=== PATIENT | male | born 1945 | race Caucasian/White ===

== ENCOUNTER 2025-05-23 17:25 | Emergency (ER) | payer MEDICARE, SELFPAY ==
--- OUTSIDE RECORDS SUMMARY | 2025-05-09 14:00 | XMS_ITS | Encounter Summary ---
Author Organization [facility] Address [address] [facility] [place] [address] Care Team Providers Care Biomedical Scientist Name Role Phone Mere Merchant MD Primary Care Provider [phone] Tasia José NP Unavailable Reason for Visit * ReasonCommentsSkin TagOn testicles. Encounter Details DateTypeDepartmentCare Team (Latest Contact Info)Qbzyfdymvho16/29/2025 3:[address] [facility] [address] [place] [address] Mere Merchant MD [address] [place] [address] Epithelial inclusion cyst (Primary Dx); Type 2 diabetes mellitus without complication, without long-term current use of insulin (HCC); Hypertension, unspecified type Social History Tobacco UseTypesPacks/DayYears UsedDateSmoking Tobacco: DumkmuPpjbhoices338Celp: 1966Smokeless Tobacco: NeverAlcohol UseStandard Drinks/WeekCommentsNot Currently 0 (1 standard drink = 0.6 oz pure alcohol)caffeine: 2-3 cups of [id number] Health LiteracyAnswerDate RecordedHow often do you need to have someone help you when you read instructions, pamphlets, or other written material from your doctor or pharmacy?Never02/05/2025Humiliation, Afraid, Rape, and Kick questionnaireAnswerDate RecordedWithin the last year, have you been afraid of your partner or ex-partner?No02/05/2025Within the last year, have you been humiliated or emotionally abused in other ways by your partner or ex-partner?No 02/05/2025Within the last year, have you been kicked, hit, slapped, or otherwise physically hurt by your partner or ex-partner?No02/05/2025Within the last year, have you been raped or forced to have any kind of sexual activity by your part ner or ex-partner?No02/05/2025Social Connection and Isolation PanelAnswerDate RecordedIn a typical week, how many times do you talk on the phone with family, friends, or neighbors?Patient vxkxtetf59/28/2025How often do you get together with friends or relatives?Three times a week02/05/2025How often do you attend nondenominational or religion services?1 to 4 times per year02/05/2025Do you belong to any clubs or organizations such as nondenominational groups, unions, fraRealTargeting or athletic kena ups, or school groups?Yes02/05/2025How often do you attend meetings of the clubs or organizations you belong to?1 to 4 times per year02/05/2025re you , , , , never , or living with a partner? 02/05/2025UDIT-CAnswerDate RecordedQ1: How often do you have a drink containing alcohol?Never02/05/2025Q2: How many drinks containing alcohol do you have on a typical day when you are drinking?Patient does not drink02/05/2025Q3: How often do you have six or more drinks on one occasion?Never02/05/2025Overall Financial Resource Strain (CARDIA)AnswerDate RecordedHow hard is it for you to pay for the very basics like food, housing, medical care, and heating?Not hard at all 02/05/2025PHQ-2AnswerDate RecordedPatient Health Questionnaire-2 Score1 02/12/2025[facility] - Occupational Stress QuestionnaireAnswerDate RecordedDo you feel stress - tense, restless, nervous, or anxious, or unable to sleep at night because yourmind is troubled all the time - these days?Very much02/05/2025Exercise Vital SignAnswerDate RecordedOn average, how many days per week do you engage in moderate to strenuous exercise (like a brisk walk)?1 day02/05/2025On average, how many minutes do you engage in exercise at this level?10 min02/05/2025Hunger Vital SignAnswerDate Recorded Within the past 12 months, you worried that your food would run out before you got the money to buymore.Never true02/05/2025Within the past 12 months, the food you bought just didn't last and you didn't have money to get more.Never true 02/05/2025PRAPARE - TransportationAnswerDate RecordedIn the past 12 months, has lack of transportation kept you from medical appointments or from getting medications?No02/05/2025In the past 12 months, has lack of transportation kept you from meetings, work, or from getting things needed for daily living?No 02/05/2025Housing Stability Vital SignAnswerDate RecordedIn the last 12 months, was there a time when you were not able to pay the mortgage or rent on time?No 02/05/2025In the past 12 months, how many times have you moved where you were living?t any time in the past 12 months, were you homeless or living in a detention (including now)?No02/05/2025Sex and Gender InformationValueDate RecordedSex Assigned at BirthNot on fileLegal MbiMezu3412/18/2024 3:38 PM EDT Gender IdentityNot on fileSexual OrientationNot on filedocumented as of this encounter Last Filed Vital Signs Vital SignReadingTime TakenCommentsBlood Nzkqfirz850/8410 2:43 PM EDT Ntdks967605/09/2025 2:43 PM EDTTemperature--Respiratory Upmf2569 2:43 PM EDTOxygen Wvhlvrrppu84%05/09/2025 2:43 PM EDTInhaled Oxygen Concentration-- Gcaqqu53.8 kg (209 lb)05/09/2025 2:43 PM JSONitfuv652.2 cm (5' 7 )05/09/2025 2:43 PM EDTBody Mass Index32.7305/09/2025 2:43 PM EDTdocumented in this encounter Progress Notes * Mere Merchant MD - 05/09/2025 3:00 PM EDT Images from the original note were not included. Subjective ?Quick Links Last Note in Specialty Snapshot Edit RFV/CC Edit Screenings Current Meds Patient ID: Kael Hurst is a 80 y.o. male who presents for Skin Tag (On testicles.). HPI History of Present Illness X months , increaed discomfort x several days ?Quick Review Review Full History Edit History Meds - Current Medications[1] --- PMH - Allergic Depression Diabetes mellitus (HCC) Disease of thyroid gland GERD (gastroesophageal reflux disease) High cholesterol Varicella Objective ?Quick Links Add Vitals Timeline (Adult) Labs Imaging Results Review Trend Vitals ?? Avoid pulling in long tables of results. Comment on relevant results to support your medical decision making. BP 148/84 (BP Location: Left arm, Patient Position: Sitting, BP Cuff Size: Large adult) Pulse 76 Resp 18 Ht 5' 7 Wt 209 lb SpO2 98% BMI 32.73 kg/m?? Physical Exam Physical Exam Multiple inclusion cyst on testicles one larger one posteriorly, which when squeezed releases whitedischarge no erythema ?Quick Links Full Problem List Assessment & Plan Epithelial inclusion cyst Advised warm bath or compresses. No additional are is indicated Type 2 diabetes mellitus without complication, without long-term current use of insulin (HCC) Hypertension, unspecified type Orders: lisinopril 20 MG tablet; Take 1 tablet (20 mg) by mouth Daily Assessment & Plan [1] Apoaequorin (Prevagen) 10 MG capsule atorvastatin (Lipitor) 20 MG tablet cholecalciferol (D3) 25 MCG (1000 UT) capsule glipiZIDE XL (Glucotrol XL) 2.5 MG 24 hr tablet levothyroxine (Synthroid, Levoxyl) 137 MCG tablet metFORMIN XR (Glucophage-XR) 500 MG 24 hr tablet pantoprazole (ProtoNix) 40 MG EC tablet tadalafil (Cialis) 10 MG tablet documented in this encounter Plan of Treatment DateTypeDepartmentCare Team (Latest Contact Info)Uwwylicdeuf62/03/2025 11:30 AM ESTOffice Visit [facility] [address] [facility] [phone] Tasia José NP [address] [facility] [place] [address] 06/14/2025 1:[address] [address] [place] [phone] Smiley Bueno, DPM [address] [place] [address] documented as of this encounter Visit Diagnoses Diagnosis Epithelial inclusion cyst- Primary Sebaceous cyst Type 2 diabetes mellitus without complication, without long-term current use of insulin (HCC) Hypertension, unspecified type documented in this encounter Additional Health Concerns AssessmentNoted TimePHQ-9 Depression Total Score: 8002/12/2025 10:00 AM EDT documented as of this encounter Care Teams Team MemberRelationshipSpecialtyStart DateEnd Date Mere Merchant MD [address] [facility] [place] [address] PCP - GeneralFamily Medicine12/18/24 Tasia José NP [address] [place], [place] [id number] Nurse PractitionerFamily Medicine12/18/24documented as of this encounter
[2025-05-23] VITALS (26 sets, daily range): BP systolic 148–180; BP diastolic 76–120; PULSE 52–84; TEMP 36.6; O2SAT 94–97; BMI 31.3
--- NOTE | 2025-05-23 17:36 | ECG_ITS ---
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 Measurements Intervals [place] Rate: 59 P: -35 NH: 195 QRS: -54 QRSD: 184 T: 126 QT: 464 QTc: 463 Interpretive Statements SINUS RHYTHM SECOND DEGREE AV BLOCK MOBITZ I AV BLOCK (WENCKEBACH) 2550 Left bundle branch block 6230 Left atrial enlargement 9150 abnormal ECG No previous ECG available for comparison Electronically Signed On 05-24-2025 18:30:06 EST by VICKY SANCHEZ M.D.
--- NOTE | 2025-05-23 17:37 | CT_ITS ---
The [address] [address] Patient Name: TAMAR GODOY MRN: [id number] date: 1945 Sex: M Assigned Patient Location: ED.MAIN Current Patient Location: ED.MAIN Accession/Order Number: [id number] Exam Date: 05/23/2025 17:50 Report Date: 05/23/2025 18:52 At the request of: MINGO HERMAN Procedure: CT cervical spine wo con CT CERVICAL SPINE WITHOUT CONTRAST WITH 3D RECONSTRUCTIONS: CLINICAL HISTORY: FALL WITH HEAD INJURY COMPARISON: None TECHNIQUE: Spiral axial unenhanced images were obtained through the cervical spine. Sagittal, coronal and 3D volume-rendered reconstructions were also reviewed. This CT exam was performed using one or more following dose reduction techniques: Automated exposure control, adjustment of the mA and/or kV according to patient size, or use of iterative reconstruction technique. FINDINGS: No fracture malalignment. Mild to moderate disc space narrowing and endplate osteophytosis multiple levels. Nycb-wi-iywwbknv multilevel facet arthropathy. Suspect mild canal narrowing C4-C5. Uncovertebral spurring and foraminal encroachment notably C4-C5 and C6-C7. Prevertebral soft tissues are unremarkable. CT/CT cervical spine wo con IMPRESSION: NO CERVICAL SPINE FRACTURE Impression dictated by: Luís Camacho M.D. 05/23/2025 6:52 PM Dictation Location: [place] [address] Electronically authenticated by: [id number] Y Date: 05/23/2025 18:52
--- NOTE | 2025-05-23 17:37 | CT_ITS ---
The [address] [address] Patient Name: TAMAR GODOY MRN: [id number] date: 1945 Sex: M Assigned Patient Location: ED.MAIN Current Patient Location: ED.MAIN Accession/Order Number: [id number] Exam Date: 05/23/2025 17:50 Report Date: 05/23/2025 18:50 At the request of: MINGO HERMAN Procedure: CT head/brain wo con CT BRAIN WITHOUT CONTRAST: CLINICAL HISTORY: FALL WITH HEAD INJURY COMPARISON: None TECHNIQUE: Contiguous axial unenhanced images were obtained through the brain. This CT exam was performed using one or more following dose reduction techniques: Automated exposure control, adjustment of the mA and/or kV according to patient size, or use of iterative reconstruction technique. FINDINGS: There is no evidence of midline shift, intra or extra-axial fluid collection, hemorrhage or CT evidence of acute large vascular distribution stroke. Central involutional changes and chronic small vessel ischemic disease. There are vascular calcifications. Cataract surgery Mild sinus disease. The surrounding soft tissues are normal. CT/CT head/brain wo con IMPRESSION: NO ACUTE INTRACRANIAL ABNORMALITY. CHRONIC MICROVASCULAR DISEASE. Impression dictated by: Luís Camacho M.D. 05/23/2025 6:50 PM Dictation Location: [place] [address] Electronically authenticated by: [id number] Y Date: 05/23/2025 18:50
--- NOTE | 2025-05-23 17:47 | XR_ITS ---
The [address] [address] Patient Name: TAMAR GODOY MRN: [id number] date: 1945 Sex: M Assigned Patient Location: ER Current Patient Location: ED.MAIN Accession/Order Number: [id number] Exam Date: 05/23/2025 17:50 Report Date: 05/23/2025 18:48 At the request of: MINGO HERMAN Procedure: XR chest 1V PA CHEST: CLINICAL HISTORY: FALL COMPARISON: None Mildly prominent cardiomediastinal silhouette. Lungs clear. No effusion or pneumothorax. XR/XR chest 1V IMPRESSION: Negative acute pleural-parenchymal disease. Impression dictated by: Luís Camacho M.D. 05/23/2025 6:48 PM Dictation Location: [place] [address] Electronically authenticated by: [id number] Y Date: 05/23/2025 18:48
[2025-05-23 17:52] LABS: Hematocrit 41.3 % (42.0-54.0); Hemoglobin 14.1 g/dL (14.0-18.0); Immature Granulocytes Abs Auto 0.02 10^3/uL (0.00-0.03); Immature Granulocytes Pct Auto 0.2 % (0.0-0.5); Lymphocytes Absolute Auto 1.6 10^3/uL (1.2-3.8); Mean Corpuscular HGB Conc 34.1 g/dL (29.9-35.2); Mean Corpuscular Hemoglobin 28.5 pg (25.9-34.0); Mean Corpuscular Volume 83.6 fL (80.0-94.0); Platelet Count 278 10^3/uL (150-450); Red Blood Count 4.94 10^6/uL (4.70-6.10); White Blood Count 9.3 10^3/uL (4.0-11.0)
--- NOTE | 2025-05-23 17:54 | ED_ITS ---
HPI HPI - General Adult General Chief complaint: Fall Stated complaint: FALL Time Seen by Provider: 05/23/25 17:29 Source: patient Mode of arrival: walk-in Limitations: no limitations History of Present Illness HPI narrative: Patient presents with fall states he has been feeling woozy today states he bent over to tie his shoes fell backwards hitting the top of his head on a dresser drawer and. Patient has headache he denies any additional injuries patient remains amatory to emergency room patient denies blurred vision, neck pain, epistaxis, back pain, chest pain, abdominal pain. Moving all extremities without difficulty. Patient denies any blood thinner use including aspirin, Eliquis, Xarelto, Coumadin. Patient denies any urinary bleeding rectal bleeding. Patient denies loss of consciousness. Symptoms moderate severity nothing improves symptoms bending over worsened his symptoms Onset (ago): hour(s) Location: Reports head Radiation: Denies non-radiation, back, neck, abdomen or flank Severity: moderate Relieving factors: Reports none Associated symptoms: Denies confusion, chest pain or nausea/vomiting Related Data Home Medications ?Medication ?Instructions ?Recorded ?Confirmed Unobtainable 05/23/25 05/23/25 Allergies Allergy/AdvReac Type Severity Reaction Status Date / Time erythromycin base (From Allergy Mild Rash Verified 05/23/25 17:40 E-Mycin) Iodinated Contrast Media Allergy Mild Rash Verified 05/23/25 17:40 Penicillins Allergy Mild Rash Verified 05/23/25 17:40 Sulfa (Sulfonamide Allergy Mild Rash Verified 05/23/25 17:40 Antibiotics) tetracycline Allergy Mild Rash Verified 05/23/25 17:40 Review of Systems ROS Status of ROS 10 or more systems reviewed and unremark able except as noted in history and below Constitutional Denies: fever or chills Eyes Denies: change in vision or blurry vision Ears, nose, mouth, and throat Denies: neck pain Cardiovascular Reports: lightheadedness; Denies: chest pain, palpitations or edema Respiratory Denies: shortness of breath or cough Gastrointestinal Denies: abdominal pain, nausea, vomiting or blood in stool Genitourinary Denies: painful urination or blood in urine Musculoskeletal Denies: back pain, neck pain or extremity pain Neurological Reports: headache and dizziness Psychiatric Denies: anxiety Hematologic/Lymphatic Denies: easy bruising Allergic/Immunologic Denies: hives PFSH PFSH Social History Little interest or pleasure in doing things: not at all Feeling down, depressed, or hopeless: not at all Exam Constitutional Vital Signs, click to edit/add: Last Vital Signs Temp 97.9 F 05/23/25 17:29 Pulse 79 05/23/25 20:40 Resp 26 H 05/23/25 20:40 BP 178/76 H 05/23/25 20:30 Pulse Ox 95 05/23/25 20:40 O2 Del Method Room Air 05/23/25 17:49 Documenting provider has reviewed patient's vital signs: yes Common normals: no apparent distress and oriented x3 Exam limitations: no altered mental status General appearance: cooperative, comfortable and well kempt; not in distress Orientation/consciousness: Yes awake; not confused HENKS Common normals: external ears normal, EACs normal and TMs normal bilaterally; negative for normocephalic and head/scalp not atraumatic Head and scalp: abrasion (Scalp abrasion right parietal) Face and sinus: normal facial exam Nose: external nose normal; septum not abnormal and no nasal discharge General ear: hearing not grossly impaired External ear: external ears normal External auditory canal: EACs normal Mouth: oral and palatal mucosa normal, lip normal and tongue normal Eye Common normals: PERRL and EOMs intact bilaterally General eye: normal appearance of both eyes and normal light reflex Visual acuity: acuity normal Alignment: alignment normal Periorbital: periorbital findings normal Conjunctiva: conjunctiva(e) normal Pupil: PERRL and accommodation reflex normal EOM: EOM normal Neck & C-Spine Common normals: full ROM and supple General: normal visual inspection; no tenderness Cervical spine: cervical ROM normal Chest Common normals: inspection of chest normal Chest: no crepitus and no tenderness Cardio Common normals: S1 normal heart sound and S2 normal heart sound; irregular rate, irregular rhythm and peripheral pulses not 2+ throughout (+1 peripheral pulses throughout.) Rate: other (Episodes of bradycardia) Rhythm: abnormal rhythm GI Common normals: Normal to inspection, nondistended, normoactive bowel sounds present, soft to palpation and non-tender Auscultation: normoactive bowel sounds Palpation: soft; non-tender Common normals: no CVA tenderness Back & Pelvis Common normals: no CVA tenderness, thoracic and lumbar spine normal to inspection, no thoracic nor lumbar tenderness and thoraco-lumbar ROM normal General back: no CVA tenderness Thoracic spine/upper back: normal to inspection Extremity Common normals: normal to inspection and full ROM General: normal exam except as noted; no deformity Neuro Common normals: oriented x3, CN's II-XII intact bilaterally and gait normal Sensorium/orientation: awake, alert, oriented to person, oriented to place and oriented to time Psych Common normals: mental status grossly normal, thought process normal, cooperative, affect normal and speech normal Course Vital Signs Vital signs: Vital Signs Temperature 97.9 F 05/23/25 17:29 Pulse Rate 84 05/23/25 17:29 Respiratory Rate 18 05/23/25 17:29 Blood Pressure 180/80 H 05/23/25 17:29 Pulse Oximetry 96 05/23/25 17:29 Oxygen Delivery Method Room Air 05/23/25 17:29 Temperature 97.9 F 05/23/25 17:29 Pulse Rate 79 05/23/25 20:40 Respiratory Rate 26 H 05/23/25 20:40 Blood Pressure 178/76 H 05/23/25 20:30 Pulse Oximetry 95 05/23/25 20:40 Oxygen Delivery Method Room Air 05/23/25 17:49 Medical Decision Making MDM Narrative Medical decision making narrative: Patient presents for fall with head injury. Denies any discharge including chest pain back pain abdominal pain. Will add CT head neck along with CBC CMP EKG troponin magnesium chest x-ray. On exam patient noted to have irregular bigeminal rhythm with bradycardia. Patient denies any history of cardiac disease including atrial fibrillation or surgery. Patient denies any blood thinner use. Discussed with cardiology Dr. David. We discussed patient's presentation and EKG. We discussed we like to transfer patient to [facility] he states we can contact the hospitalist. No further orders. Discussed with hospitalist he will accept patient. 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 Discussed plan of care with patient and family and they are agreeable to plan of care. Differential Diagnosis Differential Diagnosis: Symptomatic bradycardia, head injury, arrhythmia. Lab Data Lab results reviewed: Yes I reviewed the patient's lab results Labs: Lab Results 05/23/25 Range/Units 17:40 WBC 9.3 (4.0-11.0) 10^3/uL RBC 4.94 (4.70-6.10) 10^6/uL Hgb 14.1 (14.0-18.0) g/dL Hct 41.3 L (42.0-54.0) % MCV 83.6 (80.0-94.0) fL MCH 28.5 (25.9-34.0) pg MCHC 34.1 (29.9-35.2) g/dL RDW 14.6 (11.0-15.0) % Plt Count 278 (150-450) 10^3/uL MPV 10.9 (9.5-13.5) fL Neut % (Auto) 64.6 (43.0-75.0) % Lymph % (Auto) 17.5 L (20.5-60.0) % [place] % (Auto) 9.6 (1.7-12.0) % Eos % (Auto) 7.5 H (0.9-7.0) % Baso % (Auto) 0.6 (0.2-2.0) % Neut # (Auto) 6.0 (1.4-6.5) 10^3/uL Lymph # (Auto) 1.6 (1.2-3.8) 10^3/uL [place] # (Auto) 0.9 H (0.3-0.8) 10^3/uL Eos # (Auto) 0.7 (0.0-0.7) 10^3/uL Baso # (Auto) 0.1 (0.0-0.1) 10^3/uL Abs Immat Gran (auto) 0.02 (0.00-0.03) 10^3/uL Imm/Tot Granulo (auto) 0.2 (0.0-0.5) % Sodium 142 (136-145) mmol/L Potassium 4.2 (3.5-5.1) mmol/L Chloride 110 H (98-107) mmol/L Carbon Dioxide 24.2 (21.0-32.0) mmol/L Anion Gap 12.0 BUN 20.0 H (7.0-18.0) mg/dL Creatinine 1.48 H (0.70-1.30) mg/dL Est GFR ( Amer) 56 L (>=60 mL/min/1.73m^2) Est GFR (Non-Af Amer) 46 L (>=60 mL/min/1.73m^2) BUN/Creatinine Ratio 13.5 Glucose 147 H (74-106) mg/dL Calcium 10.2 H (8.5-10.1) mg/dL Magnesium 1.5 L (1.8-2.4) mg/dL Total Bilirubin 0.4 (0.2-1.0) mg/dL AST 15 (15-37) U/L ALT 27 (16-63) U/L Alkaline Phosphatase 87 (46-116) U/L Troponin I High Sens 66.2 (4.0-76.1) pg/mL NT-Pro-B Natriuret Pep 1092.0 (<=1800.0) pg/mL Total Protein 6.9 (6.4-8.2) g/dL Albumin 3.9 (3.4-5.0) g/dL Globulin 3.0 g/dL Albumin/Globulin Ratio 1.3 TSH 1.298 (0.358-3.740) uIU/mL ECG Data Attestation: I personally reviewed and interpreted this ECG as follows: Interpretation: [id number], bradycardia atrial rhythm bigeminal pattern CT interval 292 ms QRS 184 ms QTc 463 ms. Discharge Plan Discharge Chief Complaint: Fall Clinical Impression: Symptomatic bradycardia, Abrasion, Near syncope Closed head injury Qualifiers: Encounter type: initial encounter Qualified Code(s): S09.90XA - Unspecified injury of head, initial encounter Patient Disposition: [facility] Time of Disposition Decision: 20:38 Mode of Transportation: EMS
[2025-05-23 18:09] LABS: Alanine Aminotransferase 27 U/L (16-63); Albumin Globulin Ratio 1.3; Albumin Level 3.9 g/dL (3.4-5.0); Alkaline Phosphatase 87 U/L (46-116); Anion Gap 12.0; Aspartate Amino Transferase 15 U/L (15-37); Blood Urea Nitrogen 20.0 mg/dL (7.0-18.0); Calcium 10.2 mg/dL (8.5-10.1); Carbon Dioxide 24.2 mmol/L (21.0-32.0); Chloride 110 mmol/L (98-107); Estimated GFR (African America 56 (>=60 mL/min/1.73m^2); Estimated GFR (Non-African Ame 46 (>=60 mL/min/1.73m^2); Globulin 3.0 g/dL; Glucose 147 mg/dL (74-106); Potassium 4.2 mmol/L (3.5-5.1); Sodium 142 mmol/L (136-145); Total Protein 6.9 g/dL (6.4-8.2)
[2025-05-23 18:17] LABS: Magnesium 1.5 mg/dL (1.8-2.4)
[2025-05-23 18:18] LABS: NT Pro B Type Natriuretic Pept 1092.0 pg/mL (<=1800.0); Thyroid Stimulating Hormone 1.298 uIU/mL (0.358-3.740)
--- OUTSIDE RECORDS SUMMARY | 2025-05-23 18:19 | XMS_ITS | Clinical Summary ---
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 Name Role Phone Mere Merchant MD Primary Care Provider [phone] Tasia José NP Unavailable [phone] Allergies Active AllergyReactionsCriticalityNoted DateCommentsAmoxicillinItching,RashLow 01/15/2025Sulfa AntibioticsItching,AujoDup4101/15/2025 Medications MedicationSigDispense QuantityRefillsLast FilledStart DateEnd DateStatus Apoaequorin (Prevagen) 10 MG capsule Take by mouthActive cholecalciferol (D3) 25 MCG (1000 UT) capsule Take by mouthActive metFORMIN XR (Glucophage-XR) 500 MG 24 hr tablet Indications:Type 2 diabetes mellitus without complication, without long-term current use of insulin (HCC)Take 2 tablets (1,000 mg) by mouth in the morning and 2 tablets (1,000 mg) before bedtime. Do not crush, chew, or split. 360 tablet 6Active atorvastatin (Lipitor) 20 MG tablet Indications:Hyperlipidemia, unspecified hyperlipidemia typeTake 1 tablet (20 mg) by mouth Daily 90 tablet 5Active tadalafil (Cialis) 10 MG tablet Indications:ImpotenceTake 1 tablet (10 mg) by mouth Daily as needed for erectile dysfunction 8 tablet 509/6Active glipiZIDE XL (Glucotrol XL) 2.5 MG 24 hr tablet Indications:Type 2 diabetes mellitus without complication, without long-term current use of insulin (HCC)Take 1 tablet (2.5 mg) by mouth Daily Do not crush, chew, or split. 90 tablet 309/900543/ctive levothyroxine (Synthroid, Levoxyl) 137 MCG tablet Indications:Hypothyroidism, unspecified typeTake 137 mcg by mouth Daily 30 tablet 11095004/10/2026ctive pantoprazole (ProtoNix) 40 MG EC tablet Indications:Gastroesophageal reflux disease without esophagitisTake 1 tablet (40 mg) by mouth in the morning. Take before meals. Do not crush, chew, or split. 90 tablet 5Active lisinopril 20 MG tablet Indications:Hypertension, unspecified typeTake 1 tablet (20 mg) by mouth Daily 90 tablet ctive pantoprazole (ProtoNix) 40 MG EC tablet Take 40 mg by mouth in the morning. Take before meals. Do not crush, chew, or split.04/30/2025Discontinued(Reorder) Active Problems No known active problems Encounters DateTypeDepartmentCare PsclOwnuucnpkib08/29/2025 3:00 PM EDTOffice Visit [facility] [address] [place] [address] Mere Merchant MD Epithelial inclusion cyst (Primary Dx); Type 2 diabetes mellitus without complication, without long-term current use of insulin (HCC); Hypertension, unspecified type05/09/2025amboo flowsheet [facility] [address] [place] [address] Mere Merchant MD 05/09/20251860Igrawg44/20/2025Refill [facility] [address] [place] [address] Mere Merchant MD Gastroesophageal reflux disease without ezpbimapehe76/30/2025Refill [place] [address] [place] [address] Mere Merchant MD Type 2 diabetes mellitus without complication, without long-term current use of insulin (HCC) (Primary Dx); Hypothyroidism, unspecified type04/02/2025Results Follow-Up [facility] [address] [place] [address] Liberty Chin MD Dermatopathology exam03/28/2025 2:15 PM EDTOffice Visit [facility] [address] [place] [address] Liberty Chin MD Neoplasm of unspecified behavior of bone, soft tissue, and skin (Primary Dx); Inflamed skin tag; Pain03/28/2025amboo flowsheet [facility] [address] [place] [address] Liberty Chin MD 03/28/20255511Ptggsc07/03/2025 11:30 AM EDTOffice Visit [facility] [address] [place] [address] Tasia José NP Insomnia, unspecified type (Primary Dx); Type 2 diabetes mellitus without complication, without long-term current use of insulin ([facility]); Encounter for immunization; Hypothyroidism, unspecified type ; Impotence; Sleep apnea in adult03/14/2025amb flowsheet [facility] [address] [place] [address] Tasia José NP 03/14/20250215Ilfgrr53/02/2388Wlnivw05/27/6857Drldpo11/18/2025Refill [facility] [address] [place] [address] Mere Merchant MD Hyperlipidemia, unspecified hyperlipidemia type (Primary Dx)02/22/2025 1:15 PM EDTOffice Visit [facility] [address] [place] [address] Smiley Bueno, DPM Nail dystrophy (Primary Dx); Type II or unspecified type diabetes mellitus with neurological manifestations, not stated as uncontrolled(250.60) (HCC)02/22/2025amb flowsheet [facility] [address] [place] [address] Myles Smiley W, DPM 02/22/20258223Jmpgdi62/13/2025Travelfrom Last 3 Months Immunizations ImmunizationAdministration DatesNext DueInfluenza, High Dose Seasonal, Preservative Free03/14/2025Pneumococcal Conjugate PCV Family History Medical HistoryRelationNameCommentsCancerFatherCarl RobinsonStrokeMotherFrancis RobinsonRelationNameStatusCommentsFatherCarl RobinsonDeceasedMotherFrancis RobinsonDeceased Social History Tobacco UseTypesPacks/DayYears UsedDateSmoking Tobacco: UpvhooOothgayhad636Idkn: 1965Smokeless Tobacco: Never Tobacco Cessation:Counseling Given: Not Answered Alcohol UseStandard Drinks/WeekCommentsNot Currently0 (1 standard drink = 0.6 oz pure alcohol)caffeine: 2-3 cups of nfhfhrL1620 Health LiteracyAnswerDate RecordedHow often do you need to have someone help you when you read instructions, pamphlets, or other written material from your doctor or pharmacy? Never02/05/2025Humiliation, Afraid, Rape, and Kick questionnaireAnswerDate RecordedWithin the last year, have you been afraid of your partner or ex-partner?No02/05/2025Within the last year, have you been humiliated or emotionally abused in other ways by your partner or ex-partner?No02/05/2025 Within the last year, have you been kicked, hit, slapped, or otherwise physically hurt by your partner or ex-partner?No02/05/2025Within the last year, have you been raped or forced to have any kind of sexual activity by your part ner or ex-partner?No02/05/2025Social Connection and Isolation PanelAnswerDate RecordedIn a typical week, how many times do you talk on the phone with family, friends, or neighbors?Patient bfidirfu37/28/2025How often do you get together with friends or relatives?Three times a week02/05/2025How often do you attend sabianist or christian services?1 to 4 times per year02/05/2025Do you belong to any clubs or organizations such as sabianist groups, unions, fraternal or athletic kena ups, or school groups?Yes02/05/2025How [...] at all 02/05/2025PHQ-2AnswerDate RecordedPatient Health Questionnaire-2 Score1 02/12/2025[facility] [place] of Occupational Health - Occupational Stress QuestionnaireAnswerDate [...] were you homeless or living in a half-way (including now)?No02/05/2025Sex and Gender InformationValueDate RecordedSex Assigned at BirthNot on fileLegal DfwMnyq1512/18/2024 3:38 PM EDT Gender IdentityNot on fileSexual OrientationNot on file Last Filed Vital Signs Vital SignReadingTime TakenCommentsBlood Bjzhgdua207/8405/09/2025 2:43 PM EDT Bxrxp640305/09/2025 2:43 PM GPVKdsbpumurnb87.4 ??C (97.5 ??F)03/14/2025 11:25 AM EDTRespiratory Lcxn0680 2:43 PM EDTOxygen Ysctfoxxpw56%05/09/2025 2:43 PM EDTInhaled Oxygen Concentration--Rzzsfk85.8 kg (209 lb)05/09/2025 2:43 PM EDT Pbjpbm580.2 cm (5' 7 )05/09/2025 2:43 PM EDTBody Mass Index32.7305/09/2025 2:43 PM EDT Plan of Treatment DateTypeDepartmentCare Team (Latest Contact Info)Vpozucvxwoc95/03/2025 11:30 AM ESTOffice Visit [facility] [address] [place] [phone] Tasia José NP [address] [place] [address] 06/14/2025 1:00 PM ESTProcedure Visit [facility] [address] [place] [phone] Smiley Bueno, DPJasmin [address] [place], [place] [phone] (work) Health MaintenanceDue DateLast DoneCommentsDiabetes: Retinopathy Screening 1956OVID-19 Vaccine ( season)/12/2021, 09/16/2020 Diabetes: Hemoglobin A1C/10/2024Medicare Annual Wellness (AWV) Diabetes: Urine Protein Svuqatcjk57/09/2024 Influenza MkvyagkZowwwfmzi26/03/2025, 04/10/2022, 2021, Additional history existsPneumococcal Vaccine: 65+ EuupyBphwfxyop93/03/2025, 06/29/2018, 07/13/2010 Procedures Procedure NamePriorityDate/TimeAssociated DiagnosisCommentsSKIN / NAIL BIOPSY Shvkars0203/28/2025 2:22 PM EDT Neoplasm of unspecified behavior of bone, soft tissue, and skin DERMATOPATHOLOGY JBPIKkjyyhc03/17/2025 12:00 AM EDT Neoplasm of unspecified behavior of bone, soft tissue, and skin MICROALBUMIN / CREATININE URINE UUZDVBtgcujv67/03/2025 12:03 PM EDT Type 2 diabetes mellitus without complication, without long-term current use of insulin (HCC) POCT GLYCATED HEMOGLOBIN, VOQISAzhpgjn31/04/2025 11:25 AM EDT Type 2 diabetes mellitus without complication, without long-term current use of insulin (HCC) from Last 3 Months or Most Recently Relevant to Health Maintenance Results * Lesion biopsy (03/28/2025 2:22 PM EDT) Narrative Sabrina Starr MA - 03/28/2025 2:22 PM EDT Type of biopsy: tangential Informed consent: discussed and consent obtained ?? Informed consent comment: ??The risks and benefits of the biopsy were discussed. Risks include but are not limited to bleeding, infection, scarring, pain, and nerve damage. An opportunity to ask questions prior to the procedure was permitted and all questions were answered. Patient was prepped and draped in usual sterile fashion: area cleansed with alcohol. Anesthesia: the lesion was anesthetized in a standard fashion ?? Anesthetic: ??1% lidocaine w/ epinephrine 1-100,000 buffered w/ 8.4% NaHCO3 Instrument used: DermaBlade ?? Hemostasis achieved with: electrodesiccation ?? Outcome: patient tolerated procedure well ?? Outcome comment: ??The specimen was placed in a prelabeled formalin container to be sent for pathology Post-procedure details: sterile dressing applied and wound care instructions given ?? Post-procedure details comment: ??Emphasized need to contact clinic for any signs of infection, uncontrollable bleeding, or complications. Dressing type: bandage ?? Additional details: ??Photo taken Amount of lidocaine used: 0.5 cc Authorizing ProviderResult TypeResult StatusEmily A Petitti MDDERM PROCEDURE ORDERABLESFinal Result * Dermatopathology exam (03/28/2025 12:00 AM EDT)ComponentValueRef RangeTest MethodAnalysis TimePerformed AtPathologist SignatureSPECIMEN TYPE SPECIMEN: RIGHT ORAL COMMISSURE [facility] ICD10 CodeD23.0AURORA DIAGNOSTICSPROTOCOLF - FLATAURORA DIAGNOSTICSFinal DiagnosisTRICHILEMMOMA. COMMENT: This process is present at the base of the tissue. [facility] DIAGNOSTICSGross TextAURORA DIAGNOSTICSMicroscopic DescriptionMicroscopic examination performed.CARMEN OWMXHMXRZOCHQO81914*1[facility]A DIAGNOSTICSSpecimen (Source)Anatomical Location / LateralityCollection Method / VolumeCollection TimeReceived TimeSkinTopography unknown / Muipjtq9203/28/2025 2:22 PM EDTComment: Differential Diagnosis: inflamed acrochordon vs nevus Check Margins: No Size of lesion: 0.4 x 0.4 cm Diagnosis: (L98.9) Skin lesion of face Plan: Ambulatory referral to Dermatology (D49.2) Neoplasm of unspecified behavior of bone, soft tissue, and skin Plan: Lesion biopsy Narrative Authorizing ProviderResult TypeResult StatusEmsrinath Chin MDLAB PATHOLOGY ORDERABLESFinal ResultPerforming OrganizationAddressCity/State/ZIP CodePhone Number [facility] * Microalbumin / creatinine urine ratio (03/14/2025 12:03 PM EDT)ComponentValue Ref RangeTest MethodAnalysis TimePerformed AtPathologist SignatureCREATININE, RANDOM GPYQS1031 - 320 mg/dLQUESTALBUMIN, URINE0.3See Note: mg/dLQUESTComment: Reference Range: Reference Range Not established ALBUMIN/CREATININE RATIO, RANDOM URINE4<30 mg/g creatQUESTComment: The ADA defines abnormalities in albumin excretion as follows: Albuminuria Category ?Result (mg/g creatinine) Normal to Mildly increased <30 Moderately increased ? 30-299 Severely increased > OR = 300 The ADA recommends that at least two of three specimens collected within a 3-6 month period be abnormal before considering a patient to be within a diagnostic category. Specimen (Source)Anatomical Location / LateralityCollection Method / Volume Collection TimeReceived TimeUrineUrine specimen obtained by clean catch procedure / Brvowkk0103/14/2025 12:03 PM EDT03/14/2025 12:04 PM EDT Narrative Resulting Agency Comment Performing Organization Information ?Site ID: [id number] ?Name: [facility] ?Address: [address] [place] [phone] ?Director: Charlie White MD Authorizing ProviderResult TypeResult [facility] NPLAB URINE ORDERABLES Final ResultPerforming OrganizationAddressCity/State/ZIP CodePhone Number [facility] * POCT Glycated hemoglobin, total (02/12/2025 11:25 AM EDT)ComponentValueRef RangeTest MethodAnalysis TimePerformed AtPathologist SignatureHemoglobin A1C 6.6Specimen (Source)Anatomical Location / LateralityCollection Method / Volume Collection TimeReceived SiixWrpfj54/04/2025 11:25 AM EDT Narrative Authorizing ProviderResult TypeResult StatusC[facility] NPPOINT OF CARE TEST ENTER/EDIT ORDERABLESFinal Result from Last 3 Months or Most Recently Relevant to Health Maintenance Insurance * Guarantor: Kael Hurst PAccount TypeRelation to PatientDate of BirthPhone Billing AddressPersonal/JfjrdvJcia1945 [address] [place] [address] Care Teams Team MemberRelationshipSpecialtyStart DateEnd Mere Merchant MD [address] [place], [place] [phone] PCP - GeneralFamily Medicine12/18/24 Tasia José NP [address] [place] [address] Nurse PractitionerFamily Medicine12/18/24
--- OUTSIDE RECORDS SUMMARY | 2025-05-23 18:19 | XMS_ITS | Encounter Summary ---
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 Name Role Phone Mere Merchant MD Primary Care Provider [phone] Tasia José NP Unavailable [phone] Encounter Details DateTypeDepartmentCare Team (Latest Contact Info)Usifobxjhbc68/29/2025amboo flowsheet [facility] [address] [place] [address] Mere Merchant MD [address] [place] [address] Social History Tobacco UseTypesPacks/DayYears UsedDateSmoking Tobacco: NyrfopCipxmxoazs086Mszp: 1965Smokeless Tobacco: NeverAlcohol UseStandard Drinks/WeekCommentsNot Currently 0 (1 standard drink = 0.6 oz pure alcohol)caffeine: 2-3 cups of umqtoxM7270 Health LiteracyAnswerDate RecordedHow often do you need [...] the phone with family, friends, or neighbors?Patient yisqqrtu99/28/2025How often do you get together with friends or relatives?Three times a week02/05/2025How often do you attend yazidism or yarsani services?1 to 4 times per year02/05/2025Do you belong to any clubs or organizations such as yazidism groups, unions, fraCompuMed or athletic kena ups, or school groups?Yes02/05/2025How [...] at all 02/05/2025PHQ-2AnswerDate RecordedPatient Health Questionnaire-2 Score1 02/12/2025[facility] [place] of Occupational Health - Occupational Stress QuestionnaireAnswerDate [...] were you homeless or living in a fci (including now)?No02/05/2025Sex and Gender InformationValueDate RecordedSex Assigned at BirthNot on fileLegal YjiTmlh7212/18/2024 3:38 PM EDT Gender IdentityNot on fileSexual OrientationNot on filedocumented as of this encounter Plan of Treatment DateTypeDepartmentCare Team (Latest Contact Info)Wqxksdofass06/03/2025 11:30 AM ESTOffice Visit [facility] [address] [place] [address] Tasia José NP [address] [place] [address] 06/14/2025 1:00 PM ESTProcedure Visit [facility] [address] [place] [address] Smiley Bueno DPM [address] [place] [address] documented as of this encounter Visit Diagnoses Not on filedocumented in this encounter Additional Health Concerns AssessmentNoted TimePHQ-9 Depression Total Score: 808 10:00 AM EDT documented as of this encounter Care Teams Team MemberRelationshipSpecialtyStart DateEnd Date Mere Merchant MD [address] [place], [place] [phone] PCP - GeneralFamily Medicine12/18/24 Tasia José NP [address] [place], [place] [phone] Nurse PractitionerFamily Medicine12/18/24documented as of this encounter
--- OUTSIDE RECORDS SUMMARY | 2025-05-23 18:19 | XMS_ITS | Encounter Summary ---
Author Organization [facility] Address [address] [place] [address] Care Team Providers Care Photography Manager Name Role Phone Mere Merchant MD Primary Care Provider [phone] Tasia José NP Unavailable [phone] Encounter Details DateTypeDepartmentCare Team (Latest Contact Info)Byolimaofwy24/29/2025Travel Social History Tobacco UseTypesPacks/DayYears UsedDateSmoking Tobacco: VkrtwcRkdzqgjsim040Emmb: 1965Smokeless Tobacco: NeverAlcohol UseStandard Drinks/WeekCommentsNot Currently 0 (1 standard drink = 0.6 oz pure alcohol)caffeine: 2-3 cups of nwnzukL7817 Health LiteracyAnswerDate RecordedHow often do you need [...] the phone with family, friends, or neighbors?Patient kxklhfiu57/28/2025How often do you get together with friends or relatives?Three times a week02/05/2025How often do you attend religion or episcopalian services?1 to 4 times per year02/05/2025Do you belong to any clubs or organizations such as religion groups, unions, fraternal or athletic kena ups, [...] at all 02/05/2025PHQ-2AnswerDate RecordedPatient Health Questionnaire-2 Score1 02/12/2025[facility] [place] of Occupational Health - Occupational Stress QuestionnaireAnswerDate [...] InformationValueDate RecordedSex Assigned at BirthNot on fileLegal QxdCzod9812/18/2024 3:38 PM EDT Gender IdentityNot on fileSexual OrientationNot on filedocumented as of this encounter Plan of Treatment DateTypeDepartmentCare Team (Latest Contact Info)Pqpaejeibug67/03/2025 11:30 AM ESTOffice Visit [facility] [address] [place] [address] Tasia José NP [address] [facility] [place] [address] 06/14/2025 1:00 PM ESTProcedure Visit [facility] [address] [place] [address] Smiley Bueno DPM [address] [place] [address] documented as of this encounter Visit Diagnoses Not on filedocumented in this encounter Additional Health Concerns AssessmentNoted TimePHQ-9 Depression Total Score: 808 10:00 AM EDT documented as of this encounter Care Teams Team MemberRelationshipSpecialtyStart DateEnd Date Mere Merchant MD [address] [place], [place] [phone] PCP - GeneralFamily Medicine12/18/24 Tasia José NP [address] [place] [address] Nurse PractitionerFaksly Medicine12/18/24documented as of this encounter
[2025-05-23] MEDS: ACETAMINOPHEN 325 MG TABLET 650 MG PO (20:25)
--- NOTE | 2025-05-23 21:33 | ECG_ITS ---
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 Measurements Intervals [place] Rate: 40 P: 37 WI: 204 QRS: -61 QRSD: 160 T: 156 QT: 486 QTc: 416 Interpretive Statements 1130 Sinus bradycardia LEFT BUNDLE BRANCH BLOCK 7200 Abnormal left axis deviation 9150 abnormal ECG Compared to ECG 05/23/2025 17:38:28 Left-axis deviation now present Second-degree AV block, Mobitz type I (Wenckebach) no longer present Electronically Signed On 05-24-2025 18:34:40 EST by VICKY SANCHEZ M.D.
--- NOTE | 2025-05-23 21:38 | ECG_ITS ---
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 Measurements Intervals [place] Rate: 38 P: 12 AR: 218 QRS: -68 QRSD: 160 T: 152 QT: 504 QTc: 426 Interpretive Statements 1130 Sinus bradycardia 1938 Extreme bradycardia 2231 First degree AV block 2330 Nonspecific intraventricular conduction block 7200 Abnormal left axis deviation 9150 abnormal ECG Compared to ECG 05/23/2025 21:35:42 First degree AV block now present Electronically Signed On 05-24-2025 18:37:14 EST by VICKY SANCHEZ M.D.
== END 2025-05-23 22:19 | disposition short-term general hospital (02) ==
PROVIDERS: Physician Assistant; Emergency Provider Student in an Organized Health Care Education/Training Program
DX: R00.1 Bradycardia, unspecified (principal); R55 Syncope and collapse; S00.01XA Abrasion of scalp, initial encounter; W18.39XA Other fall on same level, initial encounter; W22.03XA Walked into furniture, initial encounter
CPT/HCPCS: 36415; 70450; 71045; 72125; 76376; 80053; 83735; 83880; 84443; 84484; 85025; 93005; 99285